=== PATIENT | male | born 1960 | race Caucasian/White ===

== ENCOUNTER 2019-09-30 17:58 | Emergency (ER) | payer MEDICARE ==
[~2019-09-30] VITALS: Ht 185.4 cm; Wt 89.1 kg
[~2019-09-30 17:58] MED LIST: ASPI-611 PO; ATOR-2 PO; CLOP75TA15 PO; INSU100V12 SQ; LISI2.5T89 PO; METO25TA6 PO; SYN0.112T PO
[2019-09-30 19:06] LABS: BASOPHILS # (AUTO) 0.1 X10'3 (0-0.2); BASOPHILS % (AUTO) 0.9 % (0-1); EOSINOPHILS # (AUTO) 0.2 X10'3 (0-0.9); EOSINOPHILS % (AUTO) 1.8 % (0-6); HEMATOCRIT 40.2 % (42.0-52.0); HEMOGLOBIN 13.9 g/dl (14.0-17.9); LYMPHOCYTES # (AUTO) 3.4 X10'3 (1.1-4.8); LYMPHOCYTES % (AUTO) 33.9 % (21-51); MEAN CORPUSCULAR HGB CONC 34.5 g/dL (33.0-36.5); MEAN CORPUSCULAR VOLUME 95.8 FL (78-98); MEAN PLATELET VOLUME 8.4 FL (7.4-10.4); MONOCYTES # (AUTO) 1.1 X10'3 (0-0.9); NEUTROPHILS # (AUTO) 5.2 X10'3 (1.8-7.7); NEUTROPHILS % (AUTO) 52.4 % (42-75); PLATELET COUNT 297 X10'3 (140-440); RED CELL DISTRIBUTION WIDTH 13.3 % (11.5-14.5)
[2019-09-30 19:14] LABS: ALANINE AMINOTRANSFERASE 45 U/L (12-78); ALBUMIN 2.8 G/DL (3.4-5.0); ALBUMIN/GLOBULIN RATIO 0.8 (1.1-1.5); ALKALINE PHOSPHATASE 92 IU/L (46-116); ANION GAP 5 (8-16); ASPARTATE AMINO TRANSFERASE 22 U/L (10-37); BILIRUBIN,TOTAL 0.4 MG/DL (0.1-1.0); BLOOD UREA NITROGEN 18 MG/DL (7-18); CALCIUM 8.7 MG/DL (8.5-10.1); CHLORIDE 104 MMOL/L (99-107); GLUCOSE 198 MG/DL (70-104); POTASSIUM 3.9 MMOL/L (3.5-5.1); SODIUM 138 MMOL/L (135-145); TOTAL PROTEIN 6.5 G/DL (6.4-8.2); eGFR 77 ML/MIN
[2019-09-30 19:32] VITALS: BP 126/83
== END 2019-09-30 19:44 | disposition home or self-care (01) ==
LOC: ER 17:58
DX: H53.8 Other visual disturbances (principal); I25.10 Atherosclerotic heart disease of native coronary artery without angina pectoris; I10 Essential (primary) hypertension; I25.2 Old myocardial infarction; Z86.73 Personal history of transient ischemic attack (TIA), and cerebral infarction without residual deficits; Z79.82 Long term (current) use of aspirin; Z79.899 Other long term (current) drug therapy; Z79.4 Long term (current) use of insulin
CPT/HCPCS: 36415; 70450; 80053; 85025; 99284

== ENCOUNTER 2019-10-17 13:53 | Inpatient (IN) | payer MEDICARE, OTHER ==
[~2019-10-17] VITALS: Ht 190.5 cm; Wt 92.0 kg
[2019-10-17] MEDS ORDERED: nitroGLYCERIN 0.4mg SUBLingual tab SL PRN ×2 (14:05→18:10)
[2019-10-17 14:29] LABS: BASOPHILS # (AUTO) 0.1 X10'3 (0-0.2); BASOPHILS % (AUTO) 0.9 % (0-1); EOSINOPHILS # (AUTO) 0.3 X10'3 (0-0.9); EOSINOPHILS % (AUTO) 3.1 % (0-6); HEMATOCRIT 37.3 % (42.0-52.0); HEMOGLOBIN 12.8 g/dl (14.0-17.9); LYMPHOCYTES # (AUTO) 2.4 X10'3 (1.1-4.8); LYMPHOCYTES % (AUTO) 24.3 % (21-51); MEAN CORPUSCULAR HGB CONC 34.2 g/dL (33.0-36.5); MEAN CORPUSCULAR VOLUME 96.5 FL (78-98); MEAN PLATELET VOLUME 8.3 FL (7.4-10.4); MONOCYTES # (AUTO) 0.9 X10'3 (0-0.9); NEUTROPHILS # (AUTO) 6.3 X10'3 (1.8-7.7); NEUTROPHILS % (AUTO) 62.7 % (42-75); PLATELET COUNT 242 X10'3 (140-440); RED BLOOD COUNT 3.86 X10'6 (4.70-6.10); RED CELL DISTRIBUTION WIDTH 13.4 % (11.5-14.5)
[2019-10-17 15:00] LABS: ALANINE AMINOTRANSFERASE 40 U/L (12-78); ALBUMIN 2.8 G/DL (3.4-5.0); ALBUMIN/GLOBULIN RATIO 0.9 (1.1-1.5); ALKALINE PHOSPHATASE 102 IU/L (46-116); ANION GAP 8 (8-16); ASPARTATE AMINO TRANSFERASE 18 U/L (10-37); BILIRUBIN,TOTAL 0.3 MG/DL (0.1-1.0); BLOOD UREA NITROGEN 23 MG/DL (7-18); BUN/CREATININE RATIO 28.8 (5.4-32.0); CALCIUM 8.3 MG/DL (8.5-10.1); CHLORIDE 106 MMOL/L (99-107); GLUCOSE 317 MG/DL (70-104); POTASSIUM 3.9 MMOL/L (3.5-5.1); SODIUM 139 MMOL/L (135-145); TOTAL CARBON DIOXIDE 25.2 MMOL/L (24-32); TOTAL PROTEIN 5.9 G/DL (6.4-8.2); eGFR > 90 ML/MIN
[2019-10-17 15:08] LABS: MAGNESIUM 1.5 MG/DL (1.5-2.4)
[2019-10-17] MEDS ORDERED: morphine 2 MG/ML inj. syringe IV PRN ×2 (15:35)
[2019-10-17] MEDS ORDERED: mag hydrox/Alum hydrox/simeth 30ml oral suspension PO PRN (15:35)
[2019-10-17] MEDS ORDERED: magnesium hydroxide 30ml (MOM) UD suspension PO PRN (15:35)
[2019-10-17] MEDS ORDERED: acetaminophen 325mg tablet PO PRN (15:35)
[2019-10-17] MEDS ORDERED: ondansetron/PF 4mg/2ml inj IV PRN (15:35)
[2019-10-17] MEDS ORDERED: INSU100V43 (15:56)
--- NOTE | 2019-10-17 16:25 | NUR ---
Received report from Melissa DODD in ED. All questions answered. Patient will be admitted to room 3013B.
--- NOTE | 2019-10-17 17:00 | NUR ---
Patient admitted to room 3013B. Vital signs taken, BP 118/77, HR 54, RR 15, O2 96% RA. 0/10 pain. Patient oriented to room. 2 RN skin check completed. Will continue to monitor
--- NOTE | 2019-10-17 17:09 | NUR ---
paged Dr Moffett PAGER ID: [phone] MESSAGE: Brigid GONZALES. Casey Carrington [id number]. patient admitted to room. Pt is diabetic, may I place orders to initiate hyper/hypoglycemic protocol? Thank you!
--- NOTE | 2019-10-17 17:25 | NUR ---
Paged Dr Moffett PAGER ID: [phone] MESSAGE: Brigid GONZALES. Casey Carrington [id number]. REPLACED BY [facility] Cardiology called and stated that patient had echo done on 09/20/2019 and wanted to verify if you still want the echo done that is currently ordered? Thank you!
[2019-10-17 17:50] LABS: URINE AMPHETAMINE SCREEN NEGATIVE (Neg); URINE BARBITUATE SCREEN NEGATIVE (Neg); URINE BENZODIAZEPINES SCREEN NEGATIVE (Neg); URINE CANNABINOID SCREEN NEGATIVE (Neg); URINE COCAINE SCREEN NEGATIVE (Neg); URINE METHADONE SCREEN NEGATIVE (Neg); URINE OPIATE SCREEN NEGATIVE (Neg); URINE PHENCYCLIDINE SCREEN NEGATIVE (Neg)
[2019-10-17] MEDS ORDERED: metoprolol tartrate 1mg/ml inj IV PRN (18:10)
[2019-10-17] MEDS ORDERED: aminophylline 250mg/10ml inj. IV PRN (18:10)
[2019-10-17] MEDS ORDERED: regadenoson 0.4mg/5ml syringe IV PRN (18:10)
--- NOTE | 2019-10-17 18:30 | NUR ---
Patient in room PCU 3013. I have received report from Brigid DODD and had the opportunity to ask questions and assume patient care.
--- NOTE | 2019-10-17 18:42 | NUR ---
Problems reprioritized. Patient report given, questions answered & plan of care reviewed with Radha DODD.
[2019-10-17 19:33] VITALS: BP 119/85
[2019-10-17] MEDS: atorvastatin 20mg tablet PO SCH (20:24)
[2019-10-17] MEDS: normal saline 1000ml 1,000 ML IV SCH (20:24)
[2019-10-17] MEDS: metoprolol tartrate 25mg tablet PO SCH (20:24)
[2019-10-17] MEDS: heparin, porcine 5000 units/ml vial SQ SCH (20:24)
[2019-10-17] MEDS ORDERED: insulin glargine (Lantus) pen - multi-dose SQ SCH (21:00)
[2019-10-17] MEDS ORDERED: MESSAGE TO PHARMACY PO ONE (21:20)
[2019-10-17] MEDS ORDERED: glucagon, human recombinant 1mg kit SUBCUT PRN (21:20)
[2019-10-17] MEDS ORDERED: dextrose ORAL solution 15 GM/59 ML bottle PO PRN ×2 (21:20)
[2019-10-17] MEDS ORDERED: dextrose 50%-water 50ml dispensing syringe IV PRN ×2 (21:20)
--- NOTE | 2019-10-17 21:27 | NUR ---
Patients HS blood glucose was 297. Notified Dr Avila. ordered Hyperglycemia protocol for the patient. MD ordered to give half dose of what the patient would normally receive for Humalog due to getting a Neha in the morning.
[2019-10-17] MEDS: insulin Lispro (HumaLOG) vial - multi-dose SQ SCH (21:59)
[2019-10-17 23:00] VITALS: BP 120/83
[2019-10-18] VITALS (23 sets, daily range): BP systolic 102–159; BP diastolic 7–105
[2019-10-18] MEDS: normal saline 1000ml 1,000 ML IV SCH ×3 (01:34→11:34)
--- NOTE | 2019-10-18 06:01 | NUR ---
Problems reprioritized. Patient report given, questions answered & plan of care reviewed with Brigid DODD.
--- NOTE | 2019-10-18 06:31 | NUR ---
Patient in room PCU 3013B. I have received report from Radha DODD and had the opportunity to ask questions and assume patient care.
[2019-10-18] MEDS: aspirin 81mg tablet.DR PO SCH (07:28)
[2019-10-18] MEDS: heparin, porcine 5000 units/ml vial SQ SCH (07:28)
[2019-10-18] MEDS: levoTHYROXINE 112mcg tablet PO SCH (07:28)
[2019-10-18] MEDS: lisinopril 2.5mg tablet PO SCH (07:30)
[2019-10-18] MEDS: metoprolol tartrate 25mg tablet PO SCH ×2 (07:30→19:59)
[2019-10-18] MEDS ORDERED: clopidogrel 75mg tablet PO SCH (08:00)
[2019-10-18 08:32] LABS: BASOPHILS # (AUTO) 0.1 X10'3 (0-0.2); BASOPHILS % (AUTO) 1.1 % (0-1); EOSINOPHILS # (AUTO) 0.3 X10'3 (0-0.9); EOSINOPHILS % (AUTO) 3.2 % (0-6); HEMATOCRIT 36.1 % (42.0-52.0); HEMOGLOBIN 12.5 g/dl (14.0-17.9); LYMPHOCYTES # (AUTO) 2.5 X10'3 (1.1-4.8); LYMPHOCYTES % (AUTO) 26.2 % (21-51); MEAN CORPUSCULAR HEMOGLOBIN 33.1 PG (27.0-31.0); MEAN CORPUSCULAR HGB CONC 34.5 g/dL (33.0-36.5); MEAN CORPUSCULAR VOLUME 95.9 FL (78-98); MEAN PLATELET VOLUME 8.5 FL (7.4-10.4); MONOCYTES # (AUTO) 0.8 X10'3 (0-0.9); MONOCYTES % (AUTO) 8.7 % (2-12); NEUTROPHILS # (AUTO) 5.9 X10'3 (1.8-7.7); NEUTROPHILS % (AUTO) 60.8 % (42-75); PLATELET COUNT 237 X10'3 (140-440); RED BLOOD COUNT 3.77 X10'6 (4.70-6.10); RED CELL DISTRIBUTION WIDTH 13.6 % (11.5-14.5); WHITE BLOOD COUNT 9.7 X10'3 (4.5-11.0)
[2019-10-18] MEDS: insulin Lispro (HumaLOG) vial - multi-dose SQ SCH ×3 (08:38→19:56)
[2019-10-18 08:42] LABS: ALBUMIN 2.7 G/DL (3.4-5.0); ANION GAP 6 (8-16); BLOOD UREA NITROGEN 14 MG/DL (7-18); BUN/CREATININE RATIO 17.1 (5.4-32.0); CALCIUM 8.1 MG/DL (8.5-10.1); CHLORIDE 108 MMOL/L (99-107); CREATININE 0.82 MG/DL (0.60-1.10); GLUCOSE 265 MG/DL (70-104); POTASSIUM 3.8 MMOL/L (3.5-5.1); SODIUM 140 MMOL/L (135-145); TOTAL CARBON DIOXIDE 26.5 MMOL/L (24-32); eGFR > 90 ML/MIN
--- NOTE | 2019-10-18 09:05 | NUR ---
Patient taken to dejuan
--- NOTE | 2019-10-18 09:39 | NUR ---
Pt with A1c 11.9 just recently admitted and seen by ISRAEL 09/22/2019 for written and verbal DM education with referral to outpatient DM class and RD contact information. No further education warranted at this time. Will continue to follow. Addendum: 10/18/19 at [address] Amended: Links added.
[2019-10-18] MEDS ORDERED: FLU VACC QS2019-20 36MOS UP/PF 60 MCG/0.5 ML SYRINGE IMVAC ONE (10:00)
[2019-10-18] MEDS ORDERED: pneumococcal 23-VAL P-sac vacc 25 mcg/0.5ml vial IMVAC ONE (10:00)
--- NOTE | 2019-10-18 11:32 | NUR ---
paged Dr Moffett regarding positive yasmin PAGER ID: [phone] MESSAGE: Brigid GONZALES. Casey Carrington [id number]. FYI yasmin resulted showing: 'Mild reversible myocardial ischemia involving the anterior and inferior cardiac mars; question of a mild fixed ischemia involving the lateral wall."
[2019-10-18] MEDS ORDERED: verapamil 2.5 mg/ml inj IV ONE (16:16)
[2019-10-18] MEDS ORDERED: iohexol 350MG/ML 100ml bottle IV ONE ×2 (16:16→17:21)
[2019-10-18] MEDS ORDERED: LIDOcaine 1% (10mg/ml)w/preservative injection 20ml MDV ONE (16:16)
[2019-10-18] MEDS ORDERED: heparin 1,000unit/ml 10ml vial 10 ML ONE ×2 (16:16→17:26)
[2019-10-18] MEDS ORDERED: nitroGLYCERIN-Tridil 50MG/D5W 250 ML IV ONE (16:16)
[2019-10-18] MEDS ORDERED: fentaNYL/PF 50MCG/1 ML 2ML syringe ONE (17:00)
[2019-10-18] MEDS ORDERED: midazolam 2 mg/2 ml injection ONE (17:01)
--- NOTE | 2019-10-18 17:30 | NUR ---
1700 blood glucose assessment not done yet as patient is at concrete plant laborer
[2019-10-18] MEDS ORDERED: clopidogrel 300mg tablet ONE (17:35)
[2019-10-18] MEDS ORDERED: clopidogrel 300mg tablet PO ONE (17:38)
--- NOTE | 2019-10-18 17:55 | NUR ---
Received report from Ember, patient brought back from hoisting laborer. Orders acknowledged and faxed to pharmacy. Received 1 stent proximal RCA; Perclose. Post op vital signs initiated, pedal pulses present, right groin procedure site shows no sign of hematoma. Patient has 0/10 pain. Per hoisting laborer, patient is to lay flat for 4 hours
--- NOTE | 2019-10-18 18:17 | NUR ---
Problems reprioritized. Patient report given, questions answered & plan of care reviewed with Bhavani DODD. Patient is stable and being monitored closely s/p slab installer return at 1755.
--- NOTE | 2019-10-18 18:17 | NUR ---
Patient in room PCU 3013. I have received report from Brigid DODD and had the opportunity to ask questions and assume patient care.
[2019-10-18] MEDS ORDERED: normal saline 1000ml 1,000 ML IV SCH (18:20)
[2019-10-18] MEDS ORDERED: proCHLORperazine 10 MG/2 ml inj IV PRN (18:20)
[2019-10-18] MEDS ORDERED: OXAZEpam 15mg capsule PO PRN (18:20)
[2019-10-18] MEDS ORDERED: HYDROcodone/acetaminophen 5mg/325mg tablet PO PRN (18:20)
[2019-10-18] MEDS ORDERED: HYDROcodone/acetaminophen 10/325mg tab PO PRN (18:20)
[2019-10-18] MEDS ORDERED: ondansetron/PF 4mg/2ml inj IV PRN (18:20)
[2019-10-18] MEDS: atorvastatin 20mg tablet PO SCH (20:00)
[2019-10-18] MEDS ORDERED: insulin glargine (Lantus) pen - multi-dose SQ SCH (21:00)
[2019-10-19 02:35] VITALS: BP 123/86
--- NOTE | 2019-10-19 06:08 | NUR ---
Problems reprioritized. Patient report given, questions answered & plan of care reviewed with Radha DODD.
--- NOTE | 2019-10-19 06:43 | NUR ---
Patient in room PCU 3013. I have received report from Bhavani DODD, and had the opportunity to ask questions and assume patient care.
[2019-10-19] MEDS: normal saline 1000ml 1,000 ML IV SCH (07:34)
[2019-10-19] MEDS ORDERED: clopidogrel 75mg tablet PO SCH (08:00)
[2019-10-19] MEDS: levoTHYROXINE 112mcg tablet PO SCH (08:30)
[2019-10-19 08:31] VITALS: BP_SYST 118
[2019-10-19] MEDS: lisinopril 2.5mg tablet PO SCH (08:31)
[2019-10-19] MEDS: metoprolol tartrate 25mg tablet PO SCH (08:31)
[2019-10-19] MEDS: insulin Lispro (HumaLOG) vial - multi-dose SQ SCH ×2 (08:43→12:32)
[2019-10-19] MEDS: aspirin 81mg tablet.DR PO SCH (08:44)
[2019-10-19] MEDS ORDERED: pneumococcal 23-VAL P-sac vacc 25 mcg/0.5ml vial IMVAC ONE (10:00)
[2019-10-19] MEDS ORDERED: FLU VACC QS2019-20 36MOS UP/PF 60 MCG/0.5 ML SYRINGE IMVAC ONE (10:00)
--- NOTE | 2019-10-21 15:00 | NUR ---
Case management DC follow up: spoke to pt mother/CG Trini Horn/lives w/pt. reports pt is doing, "fairly well". Denies pt experiencing CP, general acute pain, pain/warmth to BLE, LOMELI, blurry vision, NV, dizziness. pt remains afebrile. pt had recent CVA and does have L hemiparesis, gripping better, uses cane to ambulate. verbalizes understanding of orthostatic hypotension protocol/compliant, uses gait belt to assist pt. [facility] Assured nurse intake 10/21/2019, PT will come sometime this next week. PCP/Dr Rodríguez follow up 10/27/2019. verbalizes undestands of meds, why prescribed, taking as ordered, no ase noted; in process of changing pharmacy from [facility] to [facility] for convenience. verbalizes understanding of s/s that would warrant 9-11/ER visit for evaluation. needs met, questions answered at DC, no further questions at this time
== END 2019-10-19 12:42 | disposition home health service (06) | DRG 247 ==
LOC: ER 13:53 → ED HOLD 15:34 → PCU 3S 16:52 → OBSVTOIN 10-18 16:26
PROVIDERS: ADMIT Family Medicine; ATTEND Family Medicine
PROC: 027034Z Dilation of Coronary Artery, One Artery with Drug-eluting Intraluminal Device, Percutaneous Approach (ICD-10-PCS; principal; 2019-10-18)
PROC: 4A023N7 Measurement of Cardiac Sampling and Pressure, Left Heart, Percutaneous Approach (ICD-10-PCS; 2019-10-18)
PROC: B2151ZZ Fluoroscopy of Left Heart using Low Osmolar Contrast (ICD-10-PCS; 2019-10-18)
PROC: B2111ZZ Fluoroscopy of Multiple Coronary Arteries using Low Osmolar Contrast (ICD-10-PCS; 2019-10-18)
PROC: 4A02XM4 Measurement of Cardiac Total Activity, External Approach (ICD-10-PCS; 2019-10-18)
PROC: 3E033HZ Introduction of Radioactive Substance into Peripheral Vein, Percutaneous Approach (ICD-10-PCS; 2019-10-18)
PROC: 3E02340 Introduction of Influenza Vaccine into Muscle, Percutaneous Approach (ICD-10-PCS; 2019-10-19)
PROC: 3E0234Z Introduction of Serum, Toxoid and Vaccine into Muscle, Percutaneous Approach (ICD-10-PCS; 2019-10-19)
DX: I25.110 Atherosclerotic heart disease of native coronary artery with unstable angina pectoris (principal); I24.9 Acute ischemic heart disease, unspecified; I69.354 Hemiplegia and hemiparesis following cerebral infarction affecting left non-dominant side; E11.65 Type 2 diabetes mellitus with hyperglycemia; F17.210 Nicotine dependence, cigarettes, uncomplicated; E78.00 Pure hypercholesterolemia, unspecified; E03.9 Hypothyroidism, unspecified; E78.5 Hyperlipidemia, unspecified; I10 Essential (primary) hypertension; I25.2 Old myocardial infarction; Z79.4 Long term (current) use of insulin; Z95.5 Presence of coronary angioplasty implant and graft; Z23 Encounter for immunization; Z79.899 Other long term (current) drug therapy; Z79.82 Long term (current) use of aspirin
CPT/HCPCS: 93306; 93458; 96372; 99285; C9600; 36415; 71045; 78452; 80048; 80053; 80305; 82948; 83735; 83880; 84484; 85025; 87081; 90732; 93005; 93017; 97116; 97161; 97530; 99152; 99153; A4620; A5120; A6258; A9500; C1725; C1751; C1760; C1769; C1874; C1894; G0378; J0280; J1644; J1815; J2001; J2250; J2270; J2785; J3010; J3490; J7030; Q2037; Q9967

== ENCOUNTER → 2019-11-14 | Emergency (ER) | payer MEDICARE, MEDICAID ==
[~2019-11-14] VITALS: Ht 182.9 cm; Wt 89.1 kg
[~2019-11-14] MED LIST changes: +INSU100V43
[2019-11-14 06:04] VITALS: BP 152/93
== END | disposition home or self-care (01) ==
LOC: ER 04:17
DX: S20.212A Contusion of left front wall of thorax, initial encounter (principal); S30.1XXA Contusion of abdominal wall, initial encounter; I25.10 Atherosclerotic heart disease of native coronary artery without angina pectoris; I10 Essential (primary) hypertension; I25.2 Old myocardial infarction; Z72.89 Other problems related to lifestyle; Z79.82 Long term (current) use of aspirin; Z79.4 Long term (current) use of insulin; Z79.899 Other long term (current) drug therapy; Z86.73 Personal history of transient ischemic attack (TIA), and cerebral infarction without residual deficits; W17.89XA Other fall from one level to another, initial encounter; Y93.89 Activity, other specified; Y92.89 Other specified places as the place of occurrence of the external cause; Y99.8 Other external cause status
CPT/HCPCS: 71250; 74176; 99285